=== PATIENT | male | born 1960 | race Caucasian/White ===

== ENCOUNTER 2019-10-19 08:19 | Outpatient (CLI) | payer OTHER, SELFPAY ==
--- NOTE | ~2019-10-19 | CT_ITS ---
EXAMINATION: CT abdomen wo con DATE: 10/19/2019 08:58 INDICATION: Ventral hernia. Periumbilical abdominal pain. TECHNIQUE: Computed tomography (CT) of the abdomen was performed without intravenous contrast. Automa joan exposure control and iterative reconstruction technique were employed. The dose-length product wa s 892.73 mGy-cm. COMPARISON: None. FINDINGS: The visualized portions of the lung bases demonstrate calcified pulmonary nodules and calci fied hilar lymph nodes, consistent with old granulomatous disease. No pleural effusion. The heart siz e is normal. No pericardial effusion. There are cysts in the liver measuring up to 8 mm. The gallblad gerard is normal. Calcifications in the spleen are consistent with old granulomatous disease. The pancre as and right adrenal gland are normal. There is a 2.1 cm mass of fat in left adrenal gland, consisten t with a myelolipoma. There is a 14 mm mass in right kidney measuring soft tissue attenuation. Left k idney is normal. There are no dilated loops of bowel. The appendix is normal. There are no pathologic ally enlarged lymph nodes. There is no free intraperitoneal fluid. There are changes of ventral herni a repair. There is a recurrent supraumbilical ventral hernia containing nonobstructed small bowel. Th ere are no pathologically enlarged lymph nodes. There is no free intraperitoneal fluid. There is mild thoracolumbar spondylosis. IMPRESSION: 1. Recurrent supraumbilical ventral hernia containing nonobstructed small bowel. 2. 14 mm right kidney mass, which may be a hemorrhagic cyst or less likely a solid neoplasm. Abdomen CT without and with contrast is recommended. Reviewed, dictated and finalized at [facility]. IMPRESSION: 1. Recurrent supraumbilical ventral hernia containing nonobstructed small bowel . 2. 14 mm right kidney mass, which may be a hemorrhagic cyst or less likely a so lid neoplasm. Abdomen CT without and with contrast is recommended.
== END 2019-10-19 08:20 | disposition home or self-care (01) ==
PROVIDERS: PCP Nurse Practitioner Family; Visit Provider Nurse Practitioner Family
DX: R10.9 Unspecified abdominal pain (principal); Z98.890 Other specified postprocedural states; K43.2 Incisional hernia without obstruction or gangrene; N28.89 Other specified disorders of kidney and ureter
CPT/HCPCS: 74150

== ENCOUNTER 2019-10-23 15:14 | Outpatient (CLI) | payer OTHER, SELFPAY ==
--- NOTE | ~2019-10-23 | CT_ITS ---
EXAMINATION: CT abdomen wo/w con DATE: 10/23/2019 15:59 INDICATION: TECHNIQUE: Computed tomography (CT) of the abdomen was performed without intravenous contrast. Automa joan exposure control and iterative reconstruction technique were employed. Exam dose: 1951.10 mGy-cm total exam DLP. COMPARISON: None. FINDINGS: The lower lung hodgson are clear of infiltrate or consolidation. There is old pulmonary gran ulomatous disease. Approximately 7.4 cm hepatic dome cyst. Approximately 5 mm lower posterior right hepatic cyst. The li danny is otherwise unremarkable. The gallbladder is present. No gallbladder wall thickening or perichol ecystic fluid or inflammation. No bile duct or pancreatic duct dilatation. No pancreatic mass lesion or calcification. There are multiple calcified granulomas. No splenic mass lesion or splenomegaly. Approximately 2 cm probable left adrenal myelolipoma. There is an approximately 1.4 cm partially exophytic posterior lower pole right renal mass with atten uation of approximately 20 Hounsfield units pre- and postcontrast. This is likely a renal cyst. Follo w-up CT imaging in 6 months is recommended. At least 4 additional 5 mm and smaller probable right celestino al cysts are noted. A very small probable left renal cyst is noted. Normal caliber but atherosclerotic calcification of the abdominal aorta and aortic branches. No intra peritoneal or retroperitoneal mass lesion or adenopathy is evident. No ascites. Normal appendix. No bowel obstruction or intraperitoneal free air is evident. Status post ventral abdominal wall hernia repair. There is a midline supraumbilical ventral abdominal wall hernia containing a loop of small bowel without evidence of strangulation or obstruction. IMPRESSION: Hepatic and probable bilateral renal cysts; six-month follow-up examination is recommend ed to document stability at a 1.4 cm posterior lower pole right renal likely cyst Reviewed, dictated and finalized at [facility]. Reviewed, dictated and finalized at [facility]. IMPRESSION: Hepatic and probable bilateral renal cysts; six-month follow-up ex amination is recommended to document stability at a 1.4 cm posterior lower pole right renal likely cyst
[2019-10-23 16:24] LABS: Estimated Glomerular Filt Rate > 60
== END 2019-10-23 15:15 | disposition home or self-care (01) ==
LOC: ANHIMG 15:16
PROVIDERS: PCP Nurse Practitioner Family; Visit Provider Nurse Practitioner Family
DX: N28.89 Other specified disorders of kidney and ureter (principal); K76.89 Other specified diseases of liver
CPT/HCPCS: 36415; 74170; Q9967

== ENCOUNTER 2021-10-02 08:37 | Emergency (ER) | payer OTHER, SELFPAY ==
--- NOTE | ~2021-10-02 | XR_ITS ---
XR tibia fibula LT 2V DATE: 10/02/2021 09:01 INDICATION: Fall. Bruising, swelling of left lower leg TECHNIQUE: AP and lateral views COMPARISON: None FINDINGS: There is soft tissue swelling of the lower leg. No fracture or dislocation, periosteal reac tion or bone destruction. 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 IMPRESSION: No fracture or dislocation Reviewed, dictated and finalized at [facility]. IMPRESSION: No fracture or dislocation
[2021-10-02 08:48] VITALS: BP 171/107; PULSE 81; RESP 18; TEMP 36.8; O2SAT 100
--- NOTE | 2021-10-02 08:48 | ED.LOWEXIN ---
HPI - Extremity Injury (Lower) General Chief Complaint: Extremity Injury, Lower Stated Complaint: Left alegria Pain Time Seen by Provider: 10/02/21 08:48 Source: patient and RN notes reviewed Mode of arrival: ambulatory Limitations: no limitations History of Present Illness HPI Narrative: 61-year-old male presents to the [facility] with left alegria pain. Patient states 1 week ago at 2:30 PM he was on a ladder when he slipped and fell hitting his alegria. Denies any neck head or back pain. Patient is currently on Eliquis. Has been taking Tylenol icing it and heating it. Bruising and swelling noted. Tenderness to the anterior lower leg. Swelling and bruising noted. Full range of motion and positive pulse. Capillary refill under 2 seconds Is aware he does have a fracture. States the pharmacy is unable to get his blood pressure medication at this time, states it will be in tomorrow. 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 Carrillo. patient denies any chest pain or abdominal pain. Denies headache, blurry vision, change in vision. Related Data Home Medications Medication Instructions Recorded Confirmed amlodipine 5 mg PO DAILY 10/02/21 10/02/21 apixaban [Eliquis] 5 mg PO BID 10/02/21 10/02/21 lisinopril-hydrochlorothiazide 1 tablet PO DAILY 10/02/21 10/02/21 rosuvastatin 20 mg PO DAILY 10/02/21 10/02/21 sotalol 120 mg PO BID 10/02/21 10/02/21 Allergies Allergy/AdvReac Type Severity Reaction Status Date / Time penicillin G Allergy Unknown Rash Verified 10/02/21 09:14 Review of Systems Review of Systems: All systems reviewed & are unremarkable except as noted in HPI and below Constitutional: Constitutional: Reports no additional constitutional complaints, Denies chills and Denies fever(s) Eyes: Eyes: Reports no additional eye complaints, Denies change in vision and Denies photophobia ENT: Reports system reviewed and no additional complaints, except as documented Cardiovascular: Cardiovascular: Reports no additional cardiovascular complaints and Denies chest pain Respiratory: Respiratory: Reports no additional respiratory complaints, Denies cough and Denies dyspnea Gastrointestinal: Gastrointestinal: Reports no additional gastrointestinal complaints, Denies nausea and Denies vomiting Musculoskeletal: Musculoskeletal: Reports as per HPI, Denies back pain, Denies arthralgias, Denies joint swelling, Denies numbness and Reports other (Pain, swelling bruising noted to left lower anterior leg) Integumentary/Breasts: Skin/Breast: Reports as per HPI Neurologic: Reports system reviewed and no additional complaints, except as documented Psychiatric: Psychiatric: Reports no additional psychiatric complaints Allergic/Immunologic: Allergic/Immunologic: Reports no additional allergic/immunologic complaints PMFSH Past Medical History Medical History (Updated 10/02/21 @ 09:49 by Chela Perry APRN) High cholesterol Hypertension Social History Social History (Updated 10/02/21 @ 09:50 by Chela Perry APRN) Smoking packs per day: 0.5 Smoking cigarettes per day: 10.0 Smoking status: Current every day smoker Tobacco type: cigarettes Living arrangements: with family Gender identity (if verbalized by the patient): Male Comments At the time of my signature, I reviewed and agree with the nursing past medical, surgical, social, and family history. There is no relevant family history pertinent to the patient complaint. Exam Const: General: healthy appearing, no acute distress and alert Nutritional Appearance: well nourished Orientation/consciousness: patient oriented x3 Limitations: no limitations HENMT: Head: normal to inspection Ears: external ears normal Eyes: Pupils: Equal, round and reactive pupils present Neck: Neck: normal visual inspection, no lymphadenopathy and no meningeal signs Chest: Chest palpation & inspection: normal inspection of the chest Resp: Effort & Inspection:
== END 2021-10-02 09:20 | disposition home or self-care (01) ==
PROVIDERS: Emergency Provider Nurse Practitioner
DX: S80.12XA Contusion of left lower leg, initial encounter (principal); W11.XXXA Fall on and from ladder, initial encounter; M19.072 Primary osteoarthritis, left ankle and foot; F17.210 Nicotine dependence, cigarettes, uncomplicated; E78.00 Pure hypercholesterolemia, unspecified; I10 Essential (primary) hypertension; Z79.01 Long term (current) use of anticoagulants
CPT/HCPCS: 73590; 99213; G0463